=== PATIENT | male | born 1940 | race Caucasian/White ===

== ENCOUNTER 2017-07-06 10:52 | Observation (INO) ==
--- NOTE | 2017-07-06 11:07 | Emergency Department Note ---
Disposition Clinical Impression: Bigeminal rhythm Dyspnea Qualifiers: Dyspnea type: dyspnea on exertion Qualified Code(s): R06.09 - Other forms of dyspnea Disposition: Admitted As Inpatient Condition: Fair Referrals: Getachew Rosales MD [Primary Care Provider] - Time of Disposition: 12:17 SOB HPI - General Stated Complaint: Low heart rate, weakness Time Seen by Provider: 07/06/17 10:54 Source: patient, family Limitations: no limitations Nursing Notes Reviewed: Yes Vital Signs Reviewed: Yes - History of Present Illness Patient complains of resting dyspnea but mostly with exertion over the past several weeks. He can no longer mow his lawn or ambulate to his mailbox without becoming short of breath. He does note occasional throat tightness. He notes feeling generally weak. She was recently started on diltiazem by his primary care provider and referred to follow up with [facility] cardiology. Pt Subjective Complaint: shortness of breath Onset (ago): week(s) Severity: severe Consistency/Duration: intermittent, gradually worsening Improves with: rest Worsens with: exertion Treatment prior to arrival: other (Primary care provider prescribed diltiazem) Cough present: No - Related Data Home oxygen amount: none Allergies Allergy/AdvReac Type Severity Reaction Status Date / Time Sulfa (Sulfonamide AdvReac Rash Verified 07/06/17 11:21 Antibiotics) All systems ED: reviewed and negative except as stated. Constitutional: Reports: weakness Eyes: Reports: as per HPI ENT ED: Reports: as per HPI Cardiovascular: Reports: chest pain (Occasional chest discomfort), dyspnea on exertion Respiratory: Reports: dyspnea Gastrointestinal: Reports: as per HPI Genitourinary: Reports: as per HPI Musculoskeletal: Reports: as per HPI Integumentary: Reports: as per HPI Neurological: Reports: weakness Psychiatric: Reports: as per HPI Endocrine: Reports: fatigue Hematological/Lymphatic: Reports: as per HPI Allergic/Immunologic: Reports: as per HPI Past Medical History - Past Medical History Source: patient Medical history: Reports: arthritis, GERD, hyperlipidemia, thyroid disease Surgical history: Reports: cholecystectomy, herniorrhaphy, orthopedic, other Psychiatric history: Reports: no psych history - Social History Smoking Status: Never smoker Alcohol use: Reports: none Drug use: Reports: none Physical Exam - General Limitations: no limitations General appearance: alert - Head Head exam: atraumatic - Eye Eye exam: Present: normal appearance - ENT ENT exam: normal exam - Neck Neck exam: Present: normal inspection, full ROM - Chest Chest inspection: Present: normal inspection, symmetric chest wall rise - Respiratory Respiratory exam: Present: normal lung sounds bilaterally. Absent: respiratory distress - Cardiovascular Cardiovascular exam: Present: regular rate, normal rhythm, normal heart sounds - Abdominal Exam Abdominal exam: Present: soft, Non-Tender - Rectal Exam Rectal exam: Present: deferred - Extremities Exam Extremities exam: Present: normal inspection - Neurological Exam Neurological exam: Present: alert, oriented X3, CN II-XII intact - Psychiatric Psychiatric exam: Present: normal affect, normal mood - Skin Skin exam: Present: warm, dry, intact Course Course Narrative: Patient presents with generalized fatigue and exertional dyspnea. EKG pattern reveals bigeminy. He was initially started on diltiazem by his primary care provider. Workup initiated - Reevaluation(s) Reevaluation #1: Test results discussed with patient and family. Call placed to cardiology. I will request admission - Consultations Consultation #1: Call placed to cardiology on-call. Consult discussed with Dr. Telles Vital Signs Temperature 97.2 F L 07/06/17 11:08 Pulse Rate 69 07/06/17 11:08 Respiratory Rate 20 07/06/17 11:08 Blood Pressure 120/64 07/06/17 11:08 O2 Sat by Pulse Oximetry 98 07/06/17 11:08 Temperature 97.2 F L 07/06/17 11:08 Pulse Rate 69 07/06/17 11:08 Respiratory Rate 20 07/06/17 11:08 Blood Pressure 120/64 07/06/17 11:08 O2 Sat by Pulse Oximetry 99 07/06/17 11:08 Oxygen Delivery Oxygen Delivery Room Air Shortness of Breath/Dyspnea - Lab Data Lab results reviewed: Yes I reviewed the patient's lab results. Result diagrams: 07/06/17 11:25 07/06/17 11:25 Lab Results 07/06/17 07/06/17 07/06/17 Range/Units 11:25 11:25 11:25 WBC 7.5 (4.3-11.1) K/mcL RBC 5.09 (4.19-5.50) M/mcL Hgb 15.0 (12.9-16.9) g/dL Hct 45.4 (37.5-50.1) % MCV 89.2 (83.0-100.0) fL MCH 29.5 (28.0-33.3) pg MCHC 33.0 (31.6-35.5) g/dL RDW 12.5 (11.5-14.5) % Plt Count 185 (140-400) K/mcL MPV 11.1 (9.4-12.4) fL Immature Gran % 0.7 (0-4) % Seg Neutrophils % 45.7 % Lymphocytes % 39.2 % Monocytes % 10.2 % Eosinophils % 3.1 % Basophils % 1.1 % Neutrophils # 3.4 (1.6-8.9) K/mcL Lymphocytes # 2.9 (0.6-4.6) K/mcL Monocytes # 0.8 (0.0-1.3) K/mcL Eosinophils # 0.2 (0.0-0.6) K/mcL Basophils # 0.1 (0.0-0.2) K/mcL PT 12.9 H (9.4-12.1) Seconds INR 1.2 D-Dimer 317 (0-500) ng/mLFEU Sodium 139 (136-145) mEq/L Potassium 4.4 (3.5-4.5) mEq/L Chloride 107 (98-109) mEq/L Carbon Dioxide 26 (19-29) mEq/L BUN 16 (8-26) mg/dL Creatinine 1.10 (0.72-1.25) mg/dL Est GFR ( Amer) > 60 (> 60) Est GFR (Non-Af Amer) > 60 (> 60) BUN/Creatinine Ratio 15 (6-26) Glucose 99 (70-99) mg/dL Calculated Osmolality 289 (280-300) Calcium 9.1 (8.6-10.8) mg/dL Total Bilirubin 1.2 (0.2-1.2) mg/dL AST 17 (5-34) Units/L ALT 20 (0-55) Units/L Alkaline Phosphatase 69 (38-126) Units/L Troponin I (0-0.03) ng/mL B-Natriuretic Peptide (0-100) pg/mL Serum Total Protein 7.0 (6.0-8.3) g/dL Albumin 3.7 (3.5-5.0) g/dL Globulin 3.3 (2.4-3.5) g/dL Albumin/Globulin Ratio 1.1 (1.1-2.2) TSH (0.350-4.840) mcIU/mL 07/06/17 07/06/17 07/06/17 Range/Units 11:25 11:25 11:25 WBC (4.3-11.1) K/mcL RBC (4.19-5.50) M/mcL Hgb (12.9-16.9) g/dL Hct (37.5-50.1) % MCV (83.0-100.0) fL MCH (28.0-33.3) pg MCHC (31.6-35.5) g/dL RDW (11.5-14.5) % Plt Count (140-400) K/mcL MPV (9.4-12.4) fL Immature Gran % (0-4) % Seg Neutrophils % % Lymphocytes % % Monocytes % % Eosinophils % % Basophils % % Neutrophils # (1.6-8.9) K/mcL Lymphocytes # (0.6-4.6) K/mcL Monocytes # (0.0-1.3) K/mcL Eosinophils # (0.0-0.6) K/mcL Basophils # (0.0-0.2) K/mcL PT (9.4-12.1) Seconds INR D-Dimer (0-500) ng/mLFEU Sodium (136-145) mEq/L Potassium (3.5-4.5) mEq/L Chloride (98-109) mEq/L Carbon Dioxide (19-29) mEq/L BUN (8-26) mg/dL Creatinine (0.72-1.25) mg/dL Est GFR ( Amer) (> 60) Est GFR (Non-Af Amer) (> 60) BUN/Creatinine Ratio (6-26) Glucose (70-99) mg/dL Calculated Osmolality (280-300) Calcium (8.6-10.8) mg/dL Total Bilirubin (0.2-1.2) mg/dL AST (5-34) Units/L ALT (0-55) Units/L Alkaline Phosphatase (38-126) Units/L Troponin I 0.01 (0-0.03) ng/mL B-Natriuretic Peptide 132 H (0-100) pg/mL Serum Total Protein (6.0-8.3) g/dL Albumin (3.5-5.0) g/dL Globulin (2.4-3.5) g/dL Albumin/Globulin Ratio (1.1-2.2) TSH 4.406 (0.350-4.840) mcIU/mL - Radiology Data Radiology results reviewed: Yes I reviewed the patient's radiology results. - EKG Data EKG attestation: Yes I reviewed and interpreted this EKG. EKG results narrative: Sinus bradycardia with bigeminy pattern. Rate 69 168 QRS 109 QT/QTc 407/426
[2017-07-06 11:39] LABS: Basophils # 0.1 K/mcL (0.0-0.2); Basophils % 1.1 %; Eosinophils # 0.2 K/mcL (0.0-0.6); Eosinophils % 3.1 %; Hematocrit 45.4 % (37.5-50.1); Immature Granulocytes % 0.7 % (0-4); Lymphocytes # 2.9 K/mcL (0.6-4.6); Lymphocytes % 39.2 %; Mean Corpuscular Hemoglobin 29.5 pg (28.0-33.3); Mean Corpuscular Volume 89.2 fL (83.0-100.0); Mean Platelet Volume 11.1 fL (9.4-12.4); Monocytes # 0.8 K/mcL (0.0-1.3); Monocytes % 10.2 %; Neutrophils # 3.4 K/mcL (1.6-8.9); Platelet Count 185 K/mcL (140-400); Red Blood Count 5.09 M/mcL (4.19-5.50); Red Cell Distribution Width 12.5 % (11.5-14.5); Segmented Neutrophils % 45.7 %
[2017-07-06 11:49] LABS: Alanine Aminotransferase 20 Units/L (0-55); Albumin 3.7 g/dL (3.5-5.0); Albumin/Globulin Ratio 1.1 (1.1-2.2); Alkaline Phosphatase 69 Units/L (38-126); Aspartate Amino Transferase 17 Units/L (5-34); BUN/Creatinine Ratio 15 (6-26); Bilirubin,Total 1.2 mg/dL (0.2-1.2); Blood Urea Nitrogen 16 mg/dL (8-26); Calcium 9.1 mg/dL (8.6-10.8); Carbon Dioxide 26 mEq/L (19-29); Chloride 107 mEq/L (98-109); Globulin 3.3 g/dL (2.4-3.5); Glucose 99 mg/dL (70-99); Osmolality,Calculated 289 (280-300); Potassium 4.4 mEq/L (3.5-4.5); Sodium 139 mEq/L (136-145); eGFR For African Americans > 60 (> 60); eGFR For Non-African Americans > 60 (> 60)
[2017-07-06 11:51] LABS: INR 1.2; Prothrombin Time 12.9 Seconds (9.4-12.1)
[2017-07-06] MEDS ORDERED: Ondansetron 4 MG/2 ML VIAL IVP PRN (13:13)
[2017-07-06] MEDS ORDERED: Naloxone 0.4 MG/ML INJ IVP PRN (13:13)
[2017-07-06] MEDS ORDERED: Acetaminophen 325 MG TABLET PO PRN (13:13)
[2017-07-06] MEDS ORDERED: *HR* Morphine 2 MG/ML SYRINGE IVP PRN (13:13)
[2017-07-06] MEDS ORDERED: *HR* HYDROcodone/Acet 5/325 mg TABLET PO PRN (13:13)
--- NOTE | 2017-07-06 13:30 | Internal Med History&Physical ---
<YasminyoungdiamondJairo sanchez - Last Filed: 07/06/17 19:08> Date of Encounter: 07/06/17 Time of Encounter: 12:15 Assessment and Plan (1) Bigeminal rhythm Current visit: Yes Status: Acute Patient presents with acute bigeminal rhythm on EKG today. 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 He states he feels more SOB and weaker since beginning the Cardizem. Cardiology consult ordered in the ED. patient placed on continuous cardiac telemetry with orders for echocardiogram. Repeat EKG ordered. We will hold patient's diltiazem for now. Consider nuclear pharm stress test based on echocardiogram results and cardiology recommendations. (2) Dyspnea Current visit: Yes Status: Acute Patient presents with acute dyspnea that he reports has become worse over the past several months. Patient reports he could go on long walks previous without SOB or lightheadedness. He denies current use of home O2. Supplemental O2 ordered titration if SPO2 less than 92%, as well as continuous SPO2 monitoring. Falls/safety precautions ordered. Qualifiers: Dyspnea type: dyspnea on exertion Qualified Code(s): R06.09 - Other forms of dyspnea (3) Weakness Current visit: Yes Status: Acute Patient presents with acute weakness most like related to current bradycardia and bigeminal HR pattern. Falls/safety precautions ordered. PT/OT consults ordered to assess patient for assistance with strengthening and ADLs. (4) Lightheadedness Current visit: Yes Status: Acute Patient presents with acute lightheadedness which he states has become progressively worse. Patient reports becoming lightheaded with positional changes and at rest. Orthostatic BPs and vital signs ordered and patient placed on continuous cardiac telemetry. Patient will be falls precautions/up with assist/bedrest with bathroom privileges with assist only due to lightheadedness and weakness. (5) Chest pressure Current visit: Yes Status: Acute Patient presents with acute chest pressure he states has been going on for several months and extends across his chest and epigastric area but does not radiate. Chest pain could be due to patient's current GERD or possible cardiac issue. Patient denies previous history of cardiac events or disease personally. Patient was recently seen [facility] cardiology and started on diltiazem for irregular heart rhythm. Cardiology consult ordered in the ED. Patient placed on continuous cardiac telemetry with supplemental O2. Echocardiogram ordered. Will consider nuclear pharm stress testing based on echocardiogram results and recommendations from cardiology. (6) GERD (gastroesophageal reflux disease) Current visit: Yes Status: Chronic Patient presents with history of chronic gastroesophageal reflux disease which may be due to patient's current chest pressure and epigastric discomfort. IVP Protonix 40 mg daily ordered with first dose NOW. Qualifiers: Esophagitis presence: esophagitis presence not specified Qualified Code(s) : K21.9 - Gastro-esophageal reflux disease without esophagitis (7) HLD (hyperlipidemia) Current visit: Yes Status: Chronic Patient presents with history of chronic hyperlipidemia. Lipid panel ordered. Will continue patient's Lipitor. Qualifiers: Hyperlipidemia type: pure hypercholesterolemia Qualified Code(s): E78.00 - Pure hypercholesterolemia, unspecified; E78.0 - Pure hypercholesterolemia (8) Thyroid disease Current visit: Yes Status: Chronic Patient presents with history of chronic thyroid disease. Patient's TSH on initial labs is 4.406. Will continue patient's levothyroxine. (9) DVT prophylaxis Current visit: Yes Status: Acute Patient to be placed on DVT prophylaxis due to current admission protocol and bedrest status. Heparin 5000 units SQ every 8 ordered Internal Medicine - H&P: HPI Chief complaint: Slow heart rate/SOB/Lightheadedness Admitted From: Emergency Dept Plans for Post Hospital Care: Home History of present illness: Mr. Lay is a 76 year old male who presents from the ED with chief complaint of shortness of breath, weakness, lightheadedness, and chest pressure for the past several months. Patient states the symptoms become worse over the past week. Patient states recently he was able to walk longer distances and no his lawn without becoming short of breath. Now he reports general weakness which working prevents him from being very active. Patient was seen recently at [facility] cardiology and started on diltiazem for history of irregular heartbeat. Upon presentation today, patient's heartbeat continues to be irregular with frequent ventricular premature complexes in a bigeminal pattern. Patient denies use of home oxygen. Patient's current medical history includes arthritis , GERD, hyperlipidemia, and thyroid disease. Patient denies previous history of any cardiac disease or issues, however he has a long familial history of cardiac disease and risk factors including [place], HTN, HLD, abdominal aortic aneurysms, and CHF. Mr. Lay is at moderate risk for cardiac event based on his current symptoms, risk factors of prior tobacco abuse and HLD, as well as familial history and risk factors and he will be placed as observation status. Cardiology consult ordered in the ED. Patient to be placed on continuous cardiac telemetry, supplemental O2, and falls/safety precautions. Will hold patient's Cardizem for now. Patient to be monitored closely for signs of increasing cardiac/respiratory distress. Time spent with patient >40 minutes. Past Med Surg Social Fam HX - Past Medical History Source: patient Medical history: arthritis, GERD, hyperlipidemia, thyroid disease Psychiatric history: no psych history - Past Surgical History Surgical History: cholecystectomy, herniorrhaphy, orthopedic, other (Back surgery with metal plate), other (Tonsillectomy) - Social History Smoking Status: Never smoker Smokeless Tobacco Status: No Alcohol use: none Drug use: none Occupational status: previously employed Current living situation: Home, With Family Activity Level: Independent ambulation Recent Out of Country Travel Within the Last 8 Weeks: No Exposure or Possible Exposure to Illness During Travel: No - Family History Father Race: Family Member Ethnicity: Non- Living Status: Age at : 100 Cause of : HD Hx Family Cardiac Disorders: Yes (HD, Pacemaker, Abdominal aortic aneurysm) Hx Family Neurologic Disorders: Yes (Dementia) Mother Race: Family Member Ethnicity: Non- Living Status: Age at : 89 Cause of : [place] Hx Family Cardiac Disorders: Yes (KS, CHF, HTN) Hx Family Musculoskeletal Disorders: Yes (Arthritis) Brother Race: Family Member Ethnicity: Non- Living Status: Age at : 74 Cause of : [place] Hx Family Cardiac Disorders: Yes (KS, HTN, HLD, Abdominal aortic aneurysm) Sister Race: Family Member Ethnicity: Non- Living Status: Age at : 82 Cause of : Cancer Hx Family Cardiac Disorders: Yes (KS, DVT, HTN) Hx Family Cancer: Yes (Bladder) Hx Family Neurologic Disorders: Yes (Dementia) Internal Medicine - H&P: Meds Atorvastatin [Lipitor] 10 mg PO HS 07/06/17 [History] Diltiazem HCl [Diltiazem 12Hr ER] 120 mg PO DAILY 07/06/17 [History] Escitalopram [Lexapro] 10 mg PO DAILY 07/06/17 [History] Levothyroxine Sodium [Levoxyl] 100 mcg PO DAILY 07/06/17 [History] Allergies Sulfa (Sulfonamide Antibiotics) Adverse Reaction (Verified 07/06/17 11:21) Rash All Systems PM: A 10-system review of systems was performed and is negative for pertinent findings except as documented above in the HPI. - Constitutional Constitutional: as per HPI, weakness, no chills, no fever(s), no night sweats - EENT Eyes: no change in vision, no discharge, no pain, no photophobia Ears: no ear discharge, no ear pain, no tinnitus Nose, mouth and throat: no dysphagia, no nasal discharge, no neck pain, no sore throat - Breasts Breasts: as per HPI - Cardiovascular Cardiovascular ROS IM: as per HPI, chest pain, dyspnea, dyspnea on exertion, irregular heart rhythm, lightheadedness, no diaphoresis, no palpitations, no syncope - Respiratory Respiratory: as per HPI, dyspnea, dyspnea on exertion - Gastrointestinal Gastrointestinal: no abdominal pain, no diarrhea, no hematemesis, no hematochezia, no melena, no nausea, no vomiting - Genitourinary Genitourinary ROS male: as per HPI, difficulty urinating, post void dribbling, urinary hesitancy - Musculoskeletal Musculoskeletal ROS IM: no numbness, no tingling - Integumentary Integumentary IM: no rash, no unusual bruising - Neurological Neurological ROS: no confusion, no convulsions, no focal weakness, no numbness, no tingling, no tremor(s) - Psychiatric Psychiatric: as per HPI - Endocrine Endocrine IM: as per HPI - Hematologic/Lymphatic Hematologic/Lymphatic: no easy bruising - Allergic/Immunologic Allergic/Immunologic: as per HPI - Constitutional Vitals: Temp Pulse Resp BP Pulse Ox 97.2 F L 72 20 124/67 96 07/06/17 11:08 07/06/17 12:50 07/06/17 12:50 07/06/17 12:50 07/06/17 12:50 General appearance: Present: cooperative, A&O X 3, morbidly obese, pleasant, no acute distress, answers questions appropriately - Head Head exam: Present: atraumatic, normocephalic - Eye Eye exam: Present: PERRL, conjuntiva pink, sclera anicteric Pupils: Present: PERRL - ENT ENT exam: Present: normal exam, normal external ear exam - Neck Neck exam general surgery: Present: normal inspection, supple, trachea midline. Absent: lymphadenopathy - Respiratory Respiratory exam: Present: CTAB. Absent: accessory muscle use, rales, rhonchi, wheezes - Cardiovascular Cardiovascular exam: Present: bradycardia, irregular rhythm - GI/Abdominal GI/Abdominal exam: Present: normal bowel sounds, soft, no peritoneal signs. Absent: distended, tenderness - Rectal Rectal exam: Present: deferred - Additional comments: exam deferred. - Extremities Exam Extremities exam: Present: warm, radial pulses palpable and symmetrical. Absent : calf tenderness, cyanotic, pedal edema - Back Exam Back exam: Present: normal inspection - Neurological Exam Neurological exam: Present: CN II-XII intact, oriented X3, no focal deficits. Absent: pronater drift, facial droop, speech deficit - Psychiatric Psychiatric exam: Present: normal affect, normal mood - Skin Skin exam: Present: dry, intact Internal Med - H&P Results - Labs CBC & Chem 7: 07/06/17 11:25 07/06/17 11:25 - EKG Data EKG shows normal: sinus rhythm Rate: bradycardia - EKG Data Prior EKG available for review: yes When compared to previous EKG: there are significant changes EKG comments: 07/06/17 13:53 EKG dated 04/24/15 shows sinus rhythm. EKG dated 07/06/17 shows sinus rhythm with frequent ventricular premature complexes in a bigeminal pattern. <Zac Weller - Last Filed: 07/06/17 19:30> Date of Encounter: 07/06/17 Internal Medicine - H&P: HPI History of present illness: Mr. Lay is a 76 year old male All Systems PM: A 10-system review of systems was performed and is negative for pertinent findings except as documented above in the HPI. - Constitutional Vitals: Temp Pulse Resp BP Pulse Ox 97.6 F 74 14 139/78 96 07/06/17 15:33 07/06/17 15:33 07/06/17 15:33 07/06/17 15:33 07/06/17 15:33 Internal Med - H&P Results - Labs CBC & Chem 7: 07/06/17 11:25 07/06/17 11:25 - Attending Attestation I have personally performed a face to face evaluation on this patient. I have reviewed and agree with the care plan. History and Exam by me shows: Mr Lay is admitted for bradycardia and dyspnea. Exam Alert. Comfortable Heart irreg- trigeminy on monitor Lungs clear No edema Agree with plan as outlined above
[2017-07-06] MEDS: Pantoprazole 40 MG VIAL IVP SCH (15:14)
[2017-07-06] MEDS: *HR* Heparin 5,000 UNIT/ML VIAL SQ SCH ×2 (15:15→21:24)
--- NOTE | 2017-07-06 18:22 | Cardiology Consult Note ---
<Louise Gan - Last Filed: 07/06/17 18:18> Date of Encounter: 07/06/17 Time of Encounter: 17:00 Assessment and Plan (1) Premature ventricular contractions Current Visit: Yes Status: Acute Per cardiology: -Frequent PVCs noted per telemetry. -Episodes of bigeminy noted. -ECG with bigeminal PVCs. -Denies chest pain. -Admits to increased shortness of breath and increased weakness. -Echo pending. -K, TSH within normal limits. On synthroid. -Will check magnesium level. -Will obtain non-excercise nuclear stress test in am. -Further recommendations pending stress and echo. Discussion w patient/family: The assessment and plan as outlined above was discussed with the patient and/or family members who expressed understanding and agreement. All questions were answered. Thank you for involving us in the care of your patient. Please call with any questions. Discussed and reviewed with . History of Present Illness Consult date: 07/06/17 Requesting physician: Devendra Juarez Consult reason: Bigeminey Chief complaint: Shortness of breath, weakness History of present illness: Mr. Lay is a 76 year old male with a relevant past medical history of hyperlipidemia, hypothyroidism, anxiety, GERD. Pateint presented to [facility] with complaints of worsening shortness of breath and weakness. Patient states this has been occurring for the past couple of months. Patient states he was seen by PCP and noted to have PVCs. Patient was referred to [facility] cardiology, however has not been seen yet. Pateint was started on cardizem by PCP. Pateint states symptoms were worse with cardizem. Patient states he came to [facility] due to progressively worse shortness of breath. Pateint stated he felt like he was "going to take my last breath." Past Med Surg Social Fam HX - Past Medical History Attestation: Yes The following information was validated with the patient. Source: patient, old records reviewed, obtained from family Medical history: arthritis, GERD, hyperlipidemia, thyroid disease Psychiatric history: anxiety - Past Surgical History Surgical History: cholecystectomy, herniorrhaphy, orthopedic, other, other - Social History Smoking Status: Former smoker Smokeless Tobacco Status: No Alcohol use: none Drug use: none - Family History Father Race: Family Member Ethnicity: Non- Living Status: Age at : 100 Cause of : HD Hx Family Cardiac Disorders: Yes (HD, Pacemaker, Abdominal aortic aneurysm) Hx Family Neurologic Disorders: Yes (Dementia) Mother Race: Family Member Ethnicity: Non- Living Status: Age at : 89 Cause of : [place] Hx Family Cardiac Disorders: Yes ([place], CHF, HTN) Hx Family Musculoskeletal Disorders: Yes (Arthritis) Brother Race: Family Member Ethnicity: Non- Living Status: Age at : 74 Cause of : [place] Hx Family Cardiac Disorders: Yes ([place], HTN, HLD, Abdominal aortic aneurysm) Sister Race: Family Member Ethnicity: Non- Living Status: Age at : 82 Cause of : Cancer Hx Family Cardiac Disorders: Yes ([place], DVT, HTN) Hx Family Cancer: Yes (Bladder) Hx Family Neurologic Disorders: Yes (Dementia) Medications and Allergies Atorvastatin [Lipitor] 10 mg PO HS 07/06/17 [History] Diltiazem HCl [Diltiazem 12Hr ER] 120 mg PO DAILY 07/06/17 [History] Escitalopram [Lexapro] 10 mg PO DAILY 07/06/17 [History] Levothyroxine Sodium [Levoxyl] 100 mcg PO DAILY 07/06/17 [History] Allergies Sulfa (Sulfonamide Antibiotics) Adverse Reaction (Verified 07/06/17 11:21) Rash All Systems Review: A 10-system review of systems was performed and is negative for pertinent findings except as documented above in the HPI. - Constitutional Constitutional: weakness - Cardiovascular Cardiovascular: as per HPI, dyspnea on exertion Physical Examination Vital Signs, Last 4 Hours Temp Pulse Resp BP Pulse Ox 07/06/17 15:33 97.6 F 74 14 139/78 96 07/06/17 14:20 95 General: Conversant, No Apparent Distress HEENT: Atraumatic, Normocephaly, Mucus Membranes Moist Neck: No JVD, Normal carotid pulses Cardiac: Normal S1 and S2, No Murmur, Other (PVCs noted. ) Lungs: Normal Breath Sounds, No Wheeze, Rales, Rhonchi Neuro: Alert and responsive, No focal deficits noted Abdomen: Soft, Non-Tender Skin: No rashes noted on visualized skin Musculoskeletal: No Chest Wall Tenderness Extremities: No Clubbing, No Cyanosis, No Edema, Normal Pulses Results 07/06/17 11:25 07/06/17 11:25 Impressions Chest X-Ray 07/06/17 11:02 IMPRESSION: No acute process. D/ / Margarito Givens / Margarito Givens Interpreting Provider: Margarito Givens Active Medications Acetaminophen (Tylenol) 650 mg PO Q6HR PRN PRN Reason: Mild Pain (1-3) Stop: 01/05/18 13:14 Hydrocodone Bitart/Acetaminophen ([place] 5-325 Mg) 1 tab PO Q4HR PRN PRN Reason: Moderate Pain (4-6) Stop: 01/05/18 13:14 Atorvastatin Calcium (Lipitor) 10 mg PO HS [facility] Stop: 01/05/18 21:01 Escitalopram Oxalate (Lexapro) 10 mg PO DAILY [facility] Stop: 01/06/18 09:01 Heparin Sodium (Porcine) (Heparin) 5,000 unit SQ Q8HCO [facility] Stop: 01/05/18 14:01 Last Admin: 07/06/17 15:15 Dose: 5,000 unit Levothyroxine Sodium (Synthroid) 100 mcg PO 0630 [facility] Stop: 01/06/18 06:31 Morphine Sulfate (Morphine Sulfate) 2 mg IVP Q4HR PRN PRN Reason: Severe Pain (7-10) Stop: 01/05/18 13:14 Naloxone HCl (Narcan) 0.4 mg IVP Q2MIN PRN PRN Reason: Opioid Reversal Stop: 01/05/18 13:14 Ondansetron HCl (Zofran) 4 mg IVP Q8HR PRN PRN Reason: Nausea And Vomiting Stop: 01/05/18 13:14 Pantoprazole Sodium (Protonix) 40 mg IVP DAILY [facility] Stop: 01/05/18 13:16 Last Admin: 07/06/17 15:14 Dose: 40 mg Laboratory Tests 07/06/17 07/06/17 07/06/17 11:25 11:25 11:25 Hgb 15.0 Potassium 4.4 Creatinine 1.10 Troponin I 0.01 TSH 07/06/17 11:25 Hgb Potassium Creatinine Troponin I TSH 4.406 - Imaging and Cardiology Chest Xray: report reviewed Stress Test: pending Echo: pending - EKG Interpretation EKG results cardiology: personally reviewed (ECG with Bigeminal PVCS.), other ( Telemetry reviewed with SR, frequent PVCs and couplets. Episodes noted of bigeminy.) Consult Discharge Plan - Plan Referrals: Getachew Rosales MD [Primary Care Provider] - <Jose Telles - Last Filed: 07/06/17 20:03> Date of Encounter: 07/06/17 Assessment and Plan Discussion w patient/family: The assessment and plan as outlined above was discussed with the patient and/or family members who expressed understanding and agreement. All questions were answered. Thank you for involving us in the care of your patient. Please call with any questions. History of Present Illness History of present illness: Mr. Lay is a 76 year old male All Systems Review: A 10-system review of systems was performed and is negative for pertinent findings except as documented above in the HPI. Results 07/06/17 11:25 07/06/17 11:25 - Attending Attestation Pt independently evaluated and examined, old charts reviewed, agree with above findings, CC Shorntness of breath with exertion, fatique Pt reports six week history of increased fatigue, loss of energy and shortness of breath with exertion. Pt reports exercise tolerance has decreased to the point he cannot walk ten feet without having to stop for breath. He denies associated chest pain, pressure or shortness of breath. He reports sought care of family physician two weeks ago, found to be in bigeminy, placed on diltiazem , without significant improvement. He feels symptoms have worsened while on this medication. He underwent stress testing [facility] fifteen years ago for unclear indications, which was reportedly normal. He also notes has had an irregular heart beat, noted on physical exam and on EKG in primary care office, but denies symptoms of papitations. He notes over last 24 hours feels like he cannot take a deep breath at rest, and has to sit up and breath thru his mouth due to air hunger. He reports symptoms have improved at rest since hospitalization, but not with activity. IMP/Plan 1. CASAS - unclear etiology, very concerning for anginal equivalent, will order lexiscan cardiolytes stress imaging for AM, echocardiogram to eval LV function , PA pressures. 2. Arrhythmia; PVCs and bigeminy on monitor, also concerning for ischemic substrate, await results of stress imaging in AM 3. Fatigue, unclear etiology, possible anginal equivalent, await results of stress imaging, 4. Hypothyroid, on replacement, reports lab values at goal with recent evaluation by primary care 5. Hyperlipidemia: on statin tx, reports is at goal on most recent lab values.
[2017-07-06 18:53] LABS: Magnesium 2.1 mg/dL (1.6-2.6)
[2017-07-07 05:00] LABS: Basophils # 0.1 K/mcL (0.0-0.2); Basophils % 0.7 %; Eosinophils # 0.2 K/mcL (0.0-0.6); Eosinophils % 2.5 %; Hematocrit 45.2 % (37.5-50.1); Immature Granulocytes % 0.7 % (0-4); Lymphocytes # 3.8 K/mcL (0.6-4.6); Mean Corpuscular HGB Conc 33.2 g/dL (31.6-35.5); Mean Corpuscular Volume 90.4 fL (83.0-100.0); Mean Platelet Volume 11.2 fL (9.4-12.4); Monocytes # 0.8 K/mcL (0.0-1.3); Monocytes % 9.3 %; Neutrophils # 3.9 K/mcL (1.6-8.9); Platelet Count 181 K/mcL (140-400); Red Cell Distribution Width 12.5 % (11.5-14.5); Segmented Neutrophils % 43.8 %
[2017-07-07 05:18] LABS: Hemoglobin A1C 5.8 %
[2017-07-07 05:21] LABS: BUN/Creatinine Ratio 15 (6-26); Blood Urea Nitrogen 18 mg/dL (8-26); Carbon Dioxide 27 mEq/L (19-29); Chloride 106 mEq/L (98-109); Chol/HDL Ratio 5.4 (0-4.9); Cholesterol 185 mg/dL (< 200); Glucose 101 mg/dL (70-99); HDL Cholesterol 34 mg/dL (40-59); LDL Cholesterol,Calculated 118 mg/dL (0-99); Magnesium 2.3 mg/dL (1.6-2.6); Osmolality,Calculated 290 (280-300); Potassium 4.4 mEq/L (3.5-4.5); Sodium 139 mEq/L (136-145); Triglycerides 167 mg/dL (< 150); eGFR For African Americans > 60 (> 60); eGFR For Non-African Americans > 60 (> 60)
[2017-07-07] MEDS: *HR* Heparin 5,000 UNIT/ML VIAL SQ SCH ×3 (06:05→21:50)
[2017-07-07] MEDS ORDERED: Regadenoson 0.4 MG/5 ML SYRINGE IVP ONE (06:06)
--- NOTE | 2017-07-07 08:13 | Discharge Summary ---
Date of Encounter: 07/08/17 Time of Encounter: 08:10 - Discharge Diagnosis (1) Dyspnea Priority: Primary Status: Acute Qualifiers: Dyspnea type: dyspnea on exertion Qualified Code(s): R06.09 - Other forms of dyspnea (2) Lightheadedness Priority: Secondary Status: Acute (3) Chest pressure Priority: Primary Status: Acute (4) HLD (hyperlipidemia) Priority: Secondary Status: Chronic Qualifiers: Hyperlipidemia type: mixed hyperlipidemia Qualified Code(s): E78.2 - Mixed hyperlipidemia (5) GERD (gastroesophageal reflux disease) Priority: Secondary Status: Chronic Qualifiers: Esophagitis presence: esophagitis presence not specified Qualified Code(s) : K21.9 - Gastro-esophageal reflux disease without esophagitis (6) Thyroid disease Priority: Secondary Status: Chronic - Discharge Medications Home Medications: Atorvastatin [Lipitor] 10 mg PO HS 07/06/17 [History] Diltiazem HCl [Diltiazem 12Hr ER] 120 mg PO DAILY 07/06/17 [History] Escitalopram [Lexapro] 10 mg PO DAILY 07/06/17 [History] Levothyroxine Sodium [Levoxyl] 100 mcg PO DAILY 07/06/17 [History] Allergies/Adverse Reactions: Sulfa (Sulfonamide Antibiotics) Adverse Reaction (Verified 07/06/17 11:21) Rash Procedures/tests Complete & Pending: Procedures Performed prior 72 hours Category Date Time Status NM zachariah perf SPECT multi [NM] Routine Exams 07/06/17 18:18 Ordered EV echocardiogram Stat Y 07/06/17 13:17 Completed SP pharm nuclear stress Routine Y 07/08/17 07:45 Ordered Date of admission: 07/06/17 12:56 Primary care physician: Getachew Rosales MD Consults: 07/06/17 13:15 Consult to Occupational Therapy [CONS] Routine Comment: Evaluate, develop and implement POC Reason for Consult: Patient is having problems with ADLs due to SOB, weakness , and lightheadedness. Assess for safety measures and strengthening. 07/06/17 13:16 Consult to Physical Therapy [CONS] Routine Comment: Evaluate, develop and implement POC Reason for Consult: Patient is having problems with ADLs due to SOB, weakness , and lightheadedness. Assess for safety measures and strengthening. 07/06/17 15:15 Consult to License Issuer [CONS] Routine Reason for SW Consult: POA paperwork Discharging clinician: Nicole Bar Anticipated date of discharge: 07/07/17 - Patient Status Disposition: Home, Self-Care Condition: Fair Overall status at discharge: patient is progressing back to baseline - Discharge Instructions Follow Up With: Getachew Rosales MD [Primary Care Provider] - Forms: ED Satisfaction Letter - Diet and Activity Activity: resume usual activities as tolerated Diet: advance to your usual diet, low fat, low cholesterol, low salt diet Hospital course: Mr. Lay is a 76 year old male admitted for chest pain and shortness of breath has been going on for last few weeks. Cardiology was consulted. Chest x-ray and echocardiogram nuclear stress test has been ordered. TSH and electrolytes and within normal range. If above-mentioned test and negative patient can be discharged home and be treated as outpatient. His oxygen saturation is satisfactory on room air. As noted above a chest x-ray is requested as I did not notice any in the EMR.Significant time spend in answering questions from patient and family. Counselling provided for patient's weight gain and probable contribution towards symptoms. - Time Spent with Patient Total time spent providing and/or coordinating discharge services: Greater than 30 minutes - Constitutional Vitals: Temp Pulse Resp BP Pulse Ox 97.6 F 98 16 127/77 96 07/07/17 07:31 07/07/17 07:31 07/07/17 07:31 07/07/17 07:31 07/07/17 07:31 General appearance: Present: cooperative, A&O X 3, morbidly obese, pleasant, no acute distress, answers questions appropriately - Head Head exam: Present: atraumatic, normocephalic - Eye Eye exam: Present: PERRL, conjuntiva pink, sclera anicteric Pupils: Present: PERRL - Neck Neck exam general surgery: Present: supple, trachea midline. Absent: lymphadenopathy - Respiratory Respiratory exam: Present: CTAB. Absent: accessory muscle use, rales, rhonchi, wheezes - Cardiovascular Cardiovascular exam: Present: RRR, +S1, +S2. Absent: diastolic murmur, gallop, rubs, systolic murmur - GI/Abdominal GI/Abdominal exam: Present: normal bowel sounds, soft, no peritoneal signs. Absent: distended, tenderness - Extremities Exam Extremities exam: Present: warm, radial pulses palpable and symmetrical. Absent : calf tenderness, cyanotic, pedal edema - Neurological Exam Neurological exam: Present: CN II-XII intact, oriented X3, no focal deficits. Absent: pronater drift, facial droop, speech deficit - Skin Skin exam: Present: dry, intact
--- NOTE | 2017-07-07 09:53 | Cardiology Progress Note ---
Date of Encounter: 07/07/17 Time of Encounter: 09:00 Assessment and Plan (1) Premature ventricular contractions Current Visit: Yes Status: Acute Per cardiology: -Frequent PVCs noted per telemetry. -Episodes of bigeminy noted. -ECG with bigeminal PVCs. -Denies chest pain. -Admits to increased shortness of breath and increased weakness. -Echo 07/06/17 with LVEF 60%, moderate diastolic function, no significant valvular dysfunction, all short with normal motion. -K, Mg, and TSH, within normal limits. On synthroid. -Stress pending. -Further recommendations pending stress. -Will continue to monitor. (2) HLD (hyperlipidemia) Current Visit: Yes Status: Chronic Per cardiology: -KNown hyperlipidemia. -On atorvastatin 10mg daily. -Triglycerides 167, cholesterol 185. LDL 118, and HDL 34. AST and ALT within normal limits. -Will increase atorvastatin to 40mg daily. Qualifiers: Hyperlipidemia type: mixed hyperlipidemia Qualified Code(s): E78.2 - Mixed hyperlipidemia Discussion w patient/family: The assessment and plan as outlined above was discussed with the patient and/or family members who expressed understanding and agreement. All questions were answered. Thank you for involving us in the care of your patient. Please call with any questions. Discussed and reviewed with . Subjective Principal diagnosis: Frequent PVCs Interval history: Patient states he feels ok this morning. Patient states weakness and shortness of breath are about the same. Objective Vital Signs, Last 4 Hours Temp Pulse Resp BP Pulse Ox 07/07/17 08:31 96 07/07/17 07:31 97.6 F 98 16 127/77 96 General: Conversant, No Apparent Distress HEENT: Atraumatic, Normocephaly, Mucus Membranes Moist Neck: No JVD, Normal carotid pulses Cardiac: Normal S1 and S2, No Murmur, Other (PVCs noted. ) Lungs: Normal Breath Sounds, No Wheeze, Rales, Rhonchi Neuro: Alert and responsive, No focal deficits noted Abdomen: Soft, Non-Tender Skin: No rashes noted on visualized skin Musculoskeletal: No Chest Wall Tenderness Extremities: No Clubbing, No Cyanosis, No Edema, Normal Pulses Results 07/07/17 04:49 07/07/17 04:49 Lab Results Impressions Chest X-Ray 07/06/17 11:02 IMPRESSION: No acute process. D/ / Margarito Givens / Margarito Givens Interpreting Provider: Margarito Givens Current Medications Acetaminophen (Tylenol) 650 mg PO Q6HR PRN PRN Reason: Mild Pain (1-3) Stop: 01/05/18 13:14 Hydrocodone Bitart/Acetaminophen ([place] 5-325 Mg) 1 tab PO Q4HR PRN PRN Reason: Moderate Pain (4-6) Stop: 01/05/18 13:14 Atorvastatin Calcium (Lipitor) 10 mg PO HS [facility] Stop: 01/05/18 21:01 Last Admin: 07/06/17 21:24 Dose: 10 mg Escitalopram Oxalate (Lexapro) 10 mg PO DAILY [facility] Stop: 01/06/18 09:01 Heparin Sodium (Porcine) (Heparin) 5,000 unit SQ Q8HCO [facility] Stop: 01/05/18 14:01 Last Admin: 07/07/17 06:05 Dose: 5,000 unit Levothyroxine Sodium (Synthroid) 100 mcg PO 0630 [facility] Stop: 01/06/18 06:31 Last Admin: 07/07/17 06:06 Dose: 100 mcg Morphine Sulfate (Morphine Sulfate) 2 mg IVP Q4HR PRN PRN Reason: Severe Pain (7-10) Stop: 01/05/18 13:14 Naloxone HCl (Narcan) 0.4 mg IVP Q2MIN PRN PRN Reason: Opioid Reversal Stop: 01/05/18 13:14 Ondansetron HCl (Zofran) 4 mg IVP Q8HR PRN PRN Reason: Nausea And Vomiting Stop: 01/05/18 13:14 Pantoprazole Sodium (Protonix) 40 mg IVP DAILY [facility] Stop: 01/05/18 13:16 Last Admin: 07/06/17 15:14 Dose: 40 mg Laboratory Tests 07/06/17 07/06/17 07/07/17 11:25 11:25 04:49 Hgb 15.0 Potassium Creatinine Magnesium AST 17 ALT 20 Triglycerides Cholesterol LDL Cholesterol, Calc HDL Cholesterol TSH 4.406 07/07/17 04:49 Hgb Potassium 4.4 Creatinine 1.18 Magnesium 2.3 AST ALT Triglycerides 167 H Cholesterol 185 LDL Cholesterol, Calc 118 H HDL Cholesterol 34 L TSH - Imaging and Cardiology Chest Xray: report reviewed Stress Test: pending Echo: report reviewed - EKG Interpretation EKG results cardiology: other (Telemetry reviewed with average HR 74, sinus rhythm. Frequent PVCs, couplets, and intermittent bigeminy noted.) Consult Discharge Plan - Plan Referrals: Getachew Rosales MD [Primary Care Provider] -
[2017-07-07] MEDS: Pantoprazole 40 MG VIAL IVP SCH (12:09)
[2017-07-07] MEDS: hydroCHLOROthiazide 25 MG TABLET PO SCH (12:49)
--- NOTE | 2017-07-07 14:35 | Electrocardiograph Report ---
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
[2017-07-08] MEDS: *HR* Heparin 5,000 UNIT/ML VIAL SQ SCH ×2 (06:03→17:33)
[2017-07-08] MEDS: hydroCHLOROthiazide 25 MG TABLET PO SCH (08:34)
--- NOTE | 2017-07-08 11:15 | Internal Med Progress Note ---
<Gavin Bradley - Last Filed: 07/08/17 11:12> Date of Encounter: 07/08/17 Time of Encounter: 09:30 - Assessment and plan (1) Bigeminal rhythm Current Visit: Yes Status: Acute Assessment and plan: Pt was seen by cardiology at [facility] for irregular heart beat. Was started on Diltiazem. Pt reports medicine did not help with his symptoms. EKG here shows Bigeminal rhythm and PVCs. Continue cardac monitoring. K, Mg, and TSH wnl ECHO showed:LVEF 60%, moderate diastolic function, no significant valvular dysfunction, all short with normal motion. Stress test results pending. If negative can be d/c home. Continue to hold Diltiazem Continue HCTZ Cardiology on board. Follow Cardio recs. (2) Premature ventricular contractions Current Visit: Yes Status: Acute Assessment and plan: See bigeminal rythym (3) Dyspnea Current Visit: Yes Status: Acute Assessment and plan: Improving, but not 100% resolved. Pt sating well on RA likely 2/2 bigemeny/PVCs continue albuterol treatments QIDR Qualifiers: Dyspnea type: dyspnea on exertion Qualified Code(s): R06.09 - Other forms of dyspnea (4) Chest pressure Current Visit: Yes Status: Acute Assessment and plan: Resolved. Cardiac work up underway, but may be 2/2 to his chronic gerd for which he was not taking medication for regularly. ECHO showed:LVEF 60%, moderate diastolic function, no significant valvular dysfunction, all short with normal motion. Stress test results pending. If negative can be d/c home. (5) Lightheadedness Current Visit: Yes Status: Acute Assessment and plan: Resolved. Asked nursing to complete the orthostatics that were ordered on admission. (6) Weakness Current Visit: Yes Status: Acute Assessment and plan: resolved. Likely 2/2 to his bradycardia and bigeminal HR Evaluated by PT and cleared for D/C home. (7) HLD (hyperlipidemia) Current Visit: Yes Status: Chronic Assessment and plan: Lipid panel showed Triglycerides 167, cholesterol 185. LDL 118, and HDL 34. Atorvastatin was increased from 10mg daily to 40mg daily continue 40mg daily Qualifiers: Hyperlipidemia type: mixed hyperlipidemia Qualified Code(s): E78.2 - Mixed hyperlipidemia (8) Thyroid disease Current Visit: Yes Status: Chronic Assessment and plan: Stable. TSH 4.406 Continue Synthroid (9) GERD (gastroesophageal reflux disease) Current Visit: Yes Status: Chronic Assessment and plan: Chronic Was not on home medication. continue omeprazole Qualifiers: Esophagitis presence: esophagitis presence not specified Qualified Code(s) : K21.9 - Gastro-esophageal reflux disease without esophagitis - Subjective Interval history: Pt reports feeling better today. He denies chest pain. His only complaint is that he still gets a little short of breath on exertion, but overall his breathing is better. Patient went for the second half of his Stress test this morning and is awaiting the results. He reports he is eager to go home if the report is good. - Constitutional Vitals: Temp Pulse Resp BP Pulse Ox 97.5 F L 86 16 120/68 94 07/08/17 10:46 07/08/17 10:46 07/08/17 10:46 07/08/17 10:46 07/08/17 10:46 General appearance: Present: cooperative, A&O X 3, morbidly obese, pleasant, no acute distress, answers questions appropriately - Eye Eye exam: Present: sclera anicteric - ENT ENT exam: Present: mucous membranes moist - Respiratory Respiratory exam: Present: CTAB. Absent: rales, rhonchi, wheezes - Cardiovascular Cardiovascular exam: Present: +S1, +S2. Absent: diastolic murmur, gallop, rubs Additional comments: Occasional PVCs. - GI/Abdominal GI/Abdominal exam: Present: normal bowel sounds, soft. Absent: tenderness - Extremities Exam Extremities exam: Present: warm. Absent: pedal edema, tenderness - Neurological Exam Neurological exam: Present: alert, oriented X3. Absent: speech deficit - Psychiatric Psychiatric exam: Present: normal affect, normal mood - Skin Skin exam: Present: dry, warm Internal Medicine: Result - Labs CBC & Chem 7: 07/07/17 04:49 07/07/17 04:49 - ABG Interpretation ABG results: PT/INR, D-dimer PT 12.9 Seconds (9.4-12.1) H 07/06/17 11:25 D-Dimer 317 ng/mLFEU (0-500) 07/06/17 11:25 - Impressions Impressions Chest X-Ray 07/07/17 08:07 IMPRESSION: No acute cardiopulmonary disease. D/ / Leah Bardales MD / Leah Bardales MD Interpreting Provider: Leah Bardales MD Consult Discharge Plan - Plan Referrals: Getachew Rosales MD [Primary Care Provider] - <ChinaMusaCesarallisonWally jones H - Last Filed: 07/08/17 16:18> Date of Encounter: 07/08/17 - Constitutional Vitals: Temp Pulse Resp BP Pulse Ox 98.1 F 78 16 131/69 90 07/08/17 16:01 07/08/17 16:01 07/08/17 16:01 07/08/17 16:01 07/08/17 16:01 Internal Medicine: Result - Labs CBC & Chem 7: 07/07/17 04:49 07/07/17 04:49 - ABG Interpretation ABG results: PT/INR, D-dimer PT 12.9 Seconds (9.4-12.1) H 07/06/17 11:25 D-Dimer 317 ng/mLFEU (0-500) 07/06/17 11:25 - Attending Attestation Multiple PVCs and bigeminy Paroxysmal A. fib Discontinue diltiazem Start metoprolol per cardiology recommendations, anticoagulation to be discussed I examined this patient and my medical decision-making was reviewed with the Resident Physician. I agree with the documented findings, disposition and treatment plan as described except to the extent set forth below.
--- NOTE | 2017-07-08 11:25 | Nuclear Medicine Stress Report ---
Regadenoson Nuclear 2 day Name: Tony Lay Date of Study: 07/07/2017 Date: 1940 Ht: 66.0 in Medical Record#: [id number] Age: 76 Wt: 250.0 lb Gender: Male Order #: [id number] Location: [facility] Room: 2N7 Supervising Provider: Benitez Gutierrez CNP Reading Physician: Mervin Ness MD, [facility] Ordering Physician: Nicole Bar MD Primary Care Physician: Getachew Rosales MD Stress Technologist: Tr Cha SUPERVISOR FLESHING, CCT Fishing Gear Mechanic: Marva Sullivan Indications: Shortness of breath Impression: Very frequent PVCs noted prior to exam beginning, during stress, and in recovery. Mildly decreased LV systolic function, gated LVEF = 44%. Perfusion imaging was negative for ischemia or infarct. History: Hypercholesteremia Stress Test Summary: Stress Test Type: Pharmacologic Regadenoson 0.4mg/5ml given IV Baseline Information: Initial Heart Rate: 69 Blood Pressure: 134/76 Stress Information: Test Terminated Due to (primary): Completed Protocol Maximum Blood Pressure: 114/70 Maximum Heart Rate: 85 Percent Maximum Heart Rate Achieved: 59 Double Product: 9690 Symptoms: Lightheadness Nuclear Summary: SPECT myocardial perfusion imaging using Tc99m Sestamibi given intravenously was performed at rest and following cardiac stress testing. The resting images were obtained following initial dose of 34.1 mCi. Following stress an additional dose of 35 mCi was given at peak exercise or 30 seconds post regadenoson infusion. Findings: Stress Note * Resting ECG demonstrated sinus rhythm with frequent PVCs. * Very frequent PVCs noted prior to exam beginning, during stress, and in recovery. * Patient had no chest pain during stress. * No significant ECG changes with regadenoson. Hemodynamic responses * Normal hemodynamic responses to pharmacologic stress. Study Quality * Study quality is average. Gated EF % * Mildly decreased LV systolic function, gated LVEF = 44%. Left Ventricle * The left ventricle is not dilated. * Normal Segmental Perfusion in rest. * Normal segmental perfusion in stress. TID * No evidence of transient ischemic dilatation. Updated by Mervin Ness MD, [facility] on 07/08/2017 11:19:48 AM electronically signed on 07/08/2017 11:20:21 AM with status of Final
--- NOTE | 2017-07-08 13:42 | Discharge Summary ---
<Gavin Bradley - Last Filed: 07/09/17 10:31> Date of Encounter: 07/09/17 Time of Encounter: 13:40 - Discharge Diagnosis (1) Bigeminal rhythm Priority: Primary Status: Acute (2) Paroxysmal atrial fibrillation Priority: Secondary Status: Acute (3) Dyspnea Priority: Secondary Status: Acute Qualifiers: Dyspnea type: dyspnea on exertion Qualified Code(s): R06.09 - Other forms of dyspnea (4) Premature ventricular contractions Priority: Primary Status: Acute (5) Chest pressure Priority: Secondary Status: Acute (6) Lightheadedness Priority: Secondary Status: Acute (7) Weakness Priority: Secondary Status: Acute (8) HLD (hyperlipidemia) Priority: Secondary Status: Chronic Qualifiers: Hyperlipidemia type: mixed hyperlipidemia Qualified Code(s): E78.2 - Mixed hyperlipidemia (9) Thyroid disease Priority: Secondary Status: Chronic (10) GERD (gastroesophageal reflux disease) Priority: Secondary Status: Chronic Qualifiers: Esophagitis presence: esophagitis presence not specified Qualified Code(s) : K21.9 - Gastro-esophageal reflux disease without esophagitis - Discharge Medications Prescriptions: Apixaban [Eliquis] 5 mg PO BID #60 tab Atorvastatin [Lipitor] 40 mg PO HS #30 tab Metoprolol XL (24 HR) Succ [Toprol Xl] 12.5 mg PO DAILY #30 tab Home Medications: Escitalopram [Lexapro] 10 mg PO DAILY 07/06/17 [History] Levothyroxine Sodium [Levoxyl] 100 mcg PO DAILY 07/06/17 [History] Apixaban [Eliquis] 5 mg PO BID #60 tab 07/09/17 [Rx] Atorvastatin [Lipitor] 40 mg PO HS #30 tab 07/09/17 [Rx] Metoprolol XL (24 HR) Succ [Toprol Xl] 12.5 mg PO DAILY #30 tab 07/09/17 [Rx] Allergies/Adverse Reactions: 3 Allergy/AdvReac Type Severity Reaction Status Date / Time Sulfa (Sulfonamide AdvReac Rash Verified 07/06/17 11:21 Antibiotics) Procedures/tests Complete & Pending: Procedures Performed prior 72 hours Category Date Time Status NM zachariah perf SPECT multi [NM] Routine Exams 07/06/17 18:18 Taken EV echocardiogram Stat Y 07/06/17 13:17 Completed SP pharm nuclear stress Routine Y 07/07/17 07:45 Completed CXR 1 FINDINGS: Lungs: Clear Mediastinum: Unremarkable Pleura: No pleural effusion or pneumothorax Other: Unremarkable XR/XR chest 1V portable IMPRESSION: No acute process. CXR 2 "FINDINGS: No lines or tubes. Stable cardiomediastinal silhouette. The lungs are clear without focal consolidation or pleural effusion. No suspicious pulmonary nodules. No pulmonary edema. No pneumothorax. No acute osseous abnormality. XR/XR chest 2V IMPRESSION: No acute cardiopulmonary disease." Echo: LVEF 60%, moderate diastolic function, no significant valvular dysfunction, all short with normal motion, no pulmonary HTN. Stress: Perfusion imging negative for ischemia or infarct Date of admission: 07/06/17 12:56 Primary care physician: Getachew Rosales MD Consults: 07/06/17 13:15 Consult to Occupational Therapy [CONS] Routine Comment: Evaluate, develop and implement POC Reason for Consult: Patient is having problems with ADLs due to SOB, weakness , and lightheadedness. Assess for safety measures and strengthening. 07/06/17 13:16 Consult to Physical Therapy [CONS] Routine Comment: Evaluate, develop and implement POC Reason for Consult: Patient is having problems with ADLs due to SOB, weakness , and lightheadedness. Assess for safety measures and strengthening. 07/06/17 15:15 Consult to Supply Chain Engineer [CONS] Routine Reason for SW Consult: POA paperwork Discharging clinician: Gavin Bradley Anticipated date of discharge: 07/08/17 - Patient Status Disposition: Home, Self-Care Condition: Fair Functional capacity at discharge: independent ambulation Overall status at discharge: patient is progressing back to baseline - Discharge Instructions Instructions: Metoprolol (By mouth), Atorvastatin (By mouth), Apixaban (By mouth), Atrial Fibrillation (DC) Follow Up With: Getachew Rosales MD [Primary Care Provider] - 07/30/17 11:00 am ([phone] new practice number ) Forms: ED Satisfaction Letter Additional Instructions: Please follow up with your primary care provider within 1 week of discharge. Please follow up with your Fingerprint Expert as scheduled. Please take all your medications as prescribed including stopping your diltiazem and starting Eliquis, Metoprolol, and taking the higher dose of atorvastatin. Please return to the hospital if you experience any new or worsening symptoms. - Diet and Activity Activity: resume usual activities as tolerated Diet: advance to your usual diet Interval History: Patient reports improvement in sxs that brought him into the hospital. His stress test was negative for ischemia. PVCs reduced in half by metoprolol Hospital course: Mr. Lay is a 76 year old male c PMHx of arrhythmia, thyroid disease and HLD who presented to the hospital for CASAS and chest pressure. Patient has hx of Bigeminy and was started on diltiazem by broom stitcher at [facility]. Patient report this medication actually worsened his symptoms. Patient was worked up for causes of his sxs and his PVCs. K, Mg, and TSH were all normal. CXR was normal. Echo showed mild diastolic dysfunction, and Stress test showed no signs of ischemia or infarct. Cardiology was on board through out. Patient had a run of afib so it was decided to start the patient on anticoagulation and a beta suzette. Patient was observed overnight after starting metoprolol and his PVC rate was cut in half. Patient was discharged on metoprolol and elliquis with follow up with cardiology. - Time Spent with Patient Total time spent providing and/or coordinating discharge services: 40 Minutes - Constitutional Vitals: Temp Pulse Resp BP Pulse Ox 97.5 F L 86 16 121/73 94 07/08/17 10:46 07/08/17 10:46 07/08/17 10:46 07/08/17 12:37 07/08/17 10:46 General appearance: Present: cooperative, A&O X 3, morbidly obese, pleasant, no acute distress, answers questions appropriately - Eye Eye exam: Present: sclera anicteric - ENT ENT exam: Present: mucous membranes dry - Respiratory Respiratory exam: Present: CTAB. Absent: rales, rhonchi, wheezes - Cardiovascular Cardiovascular exam: Present: +S1, +S2. Absent: diastolic murmur, gallop, rubs Additional comments: Frequent PVCs - GI/Abdominal GI/Abdominal exam: Present: normal bowel sounds, soft. Absent: tenderness - Extremities Exam Extremities exam: Absent: pedal edema - Neurological Exam Neurological exam: Present: alert, oriented X3. Absent: speech deficit - Psychiatric Psychiatric exam: Present: normal affect, normal mood - Skin Skin exam: Present: dry, warm <[place],Wally H - Last Filed: 07/09/17 13:30> Date of Encounter: 07/09/17 Procedures/tests Complete & Pending: Procedures Performed prior 72 hours Category Date Time Status NM zachariah perf SPECT multi [NM] Routine Exams 07/06/17 18:18 Taken ECG 12 lead ECG [ECG] Stat Y 07/08/17 15:48 Ordered EV echocardiogram Stat Y 07/06/17 13:17 Completed SP pharm nuclear stress Routine Y 07/07/17 07:45 Completed Date of admission: 07/06/17 12:56 Primary care physician: Getachew Rosales MD Consults: 07/06/17 13:15 Consult to Occupational Therapy [CONS] Routine Comment: Evaluate, develop and implement POC Reason for Consult: Patient is having problems with ADLs due to SOB, weakness , and lightheadedness. Assess for safety measures and strengthening. 07/06/17 13:16 Consult to Physical Therapy [CONS] Routine Comment: Evaluate, develop and implement POC Reason for Consult: Patient is having problems with ADLs due to SOB, weakness , and lightheadedness. Assess for safety measures and strengthening. 07/06/17 15:15 Consult to Supply Chain Engineer [CONS] Routine Reason for SW Consult: POA paperwork Hospital course: Mr. Lay is a 76 year old male - Time Spent with Patient Total time spent providing and/or coordinating discharge services: - Constitutional Vitals: Temp Pulse Resp BP Pulse Ox 97.8 F 65 16 129/78 96 07/09/17 11:20 07/09/17 11:20 07/09/17 11:20 07/09/17 11:20 07/09/17 11:20 - Attending Attestation Discontinue diltiazem, continue metoprolol and Eliquis per cardiology recommendations I examined this patient and my medical decision-making was reviewed with the Resident Physician. I agree with the documented findings, disposition and treatment plan as described except to the extent set forth below.
--- NOTE | 2017-07-08 15:38 | Cardiology Progress Note ---
Date of Encounter: 07/08/17 Time of Encounter: 14:00 Assessment and Plan (1) Premature ventricular contractions Current Visit: Yes Status: Acute Per cardiology: -Frequent PVCs noted per telemetry. -Episodes of bigeminy noted. -ECG with bigeminal PVCs. -Denies chest pain. -Admits to increased shortness of breath and increased weakness. -Echo 07/06/17 with LVEF 60%, moderate diastolic function, no significant valvular dysfunction, all short with normal motion. -K, Mg, and TSH, within normal limits. On synthroid. -Stress negative for ischemia or infarct. -Will start low dose beta suzette. Will continue to monitor. -Of note, pateint complained of left shoulder pain during assessment. WIll order stat ECG to rule out cardiac cause of pain. (2) Paroxysmal atrial fibrillation Current Visit: Yes Status: Acute Per cardiology: -No known history fo atrial fibrillation. -Paroxysmal atrial fibrillation noted per telemetry. Telemetry strips reviewed with who agrees with atrial fibrillation. -[id number] score 2 (age). Recommend buttermaker helper anticoagulation. Discussed at length with patient and family. Patient prefers NOACs to coumadin. Would be agreeable to coumadin if NOAC not affordable. -Average HR 81. -Pateint admits to shortness of breath and palpitations, however has frequent PVCs also. -Started low dose beta suzette. -Will guillermo check NOACs for pateint. WIll determine snf anticoagulation pending guillermo check. (3) HLD (hyperlipidemia) Current Visit: Yes Status: Chronic Per cardiology: -KNown hyperlipidemia. -Triglycerides 167, cholesterol 185. LDL 118, and HDL 34. AST and ALT within normal limits. -Will continue to monitor. Qualifiers: Hyperlipidemia type: mixed hyperlipidemia Qualified Code(s): E78.2 - Mixed hyperlipidemia Discussion w patient/family: The assessment and plan as outlined above was discussed with the patient and/or family members who expressed understanding and agreement. All questions were answered. Thank you for involving us in the care of your patient. Please call with any questions. Discussed and reviewed with . Subjective Principal diagnosis: Frequent PVCs Interval history: Patient states he feels ok this morning. Patient states weakness and shortness of breath are about the same. Patient denies bleeding or blood loss. Objective Vital Signs, Last 4 Hours BP BP BP 07/08/17 12:37 121/73 127/77 143/73 Vital Signs Temp Pulse Resp BP BP BP BP 07/08/17 12:37 121/73 127/77 143/73 07/08/17 10:46 97.5 F L 86 16 120/68 07/08/17 08:04 97.8 F 69 15 125/70 07/08/17 04:00 98.2 F 95 19 109/72 07/08/17 03:07 17 07/07/17 23:19 16 07/07/17 20:00 97.8 F 76 19 133/56 07/07/17 15:56 97.8 F 87 14 154/68 Pulse Ox 07/08/17 12:37 07/08/17 10:46 94 07/08/17 08:04 96 07/08/17 04:00 94 07/08/17 03:07 98 07/07/17 23:19 94 07/07/17 20:00 95 07/07/17 15:56 93 General: Conversant, No Apparent Distress HEENT: Atraumatic, Normocephaly, Mucus Membranes Moist Neck: No JVD, Normal carotid pulses Cardiac: Normal S1 and S2, No Murmur, Other (Irregular) Lungs: Normal Breath Sounds, No Wheeze, Rales, Rhonchi Neuro: Alert and responsive, No focal deficits noted Abdomen: Soft, Non-Tender Skin: No rashes noted on visualized skin Musculoskeletal: No Chest Wall Tenderness Extremities: No Clubbing, No Cyanosis, No Edema, Normal Pulses Results 07/07/17 04:49 07/07/17 04:49 Active Medications Acetaminophen (Tylenol) 650 mg PO Q6HR PRN PRN Reason: Mild Pain (1-3) Stop: 01/05/18 13:14 Hydrocodone Bitart/Acetaminophen ([place] 5-325 Mg) 1 tab PO Q4HR PRN PRN Reason: Moderate Pain (4-6) Stop: 01/05/18 13:14 Albuterol Sulfate (Albuterol Inhaler) 2 puff IH QIDR [facility] Stop: 01/06/18 17:01 Last Admin: 07/08/17 11:34 Dose: 2 puff Atorvastatin Calcium (Lipitor) 40 mg PO [facility] Stop: 01/06/18 21:01 Last Admin: 07/07/17 21:50 Dose: 40 mg Escitalopram Oxalate (Lexapro) 10 mg PO DAILY [facility] Stop: 01/06/18 09:01 Last Admin: 07/08/17 08:34 Dose: 10 mg Heparin Sodium (Porcine) (Heparin) 5,000 unit SQ Q8HCO [facility] Stop: 01/05/18 14:01 Last Admin: 07/08/17 06:03 Dose: 5,000 unit Hydrochlorothiazide (Hydrochlorothiazide) 25 mg PO DAILY [facility] PRN Reason: Protocol Stop: 01/06/18 10:46 Last Admin: 07/08/17 08:34 Dose: 25 mg Levothyroxine Sodium (Synthroid) 100 mcg PO 0630 [facility] Stop: 01/06/18 06:31 Last Admin: 07/08/17 06:03 Dose: 100 mcg Metoprolol Succinate (Toprol Xl) 12.5 mg PO DAILY [facility] Stop: 01/07/18 15:46 Morphine Sulfate (Morphine Sulfate) 2 mg IVP Q4HR PRN PRN Reason: Severe Pain (7-10) Stop: 01/05/18 13:14 Naloxone HCl (Narcan) 0.4 mg IVP Q2MIN PRN PRN Reason: Opioid Reversal Stop: 01/05/18 13:14 Omeprazole (Prilosec) 20 mg PO DAILY@0630 [facility] PRN Reason: Protocol Stop: 01/07/18 06:31 Last Admin: 07/08/17 06:03 Dose: 20 mg Ondansetron HCl (Zofran) 4 mg IVP Q8HR PRN PRN Reason: Nausea And Vomiting Stop: 01/05/18 13:14 Laboratory Tests 07/06/17 07/07/17 07/07/17 11:25 04:49 04:49 Hgb 15.0 Potassium 4.4 Creatinine 1.18 Magnesium 2.3 TSH 4.406 - Imaging and Cardiology Chest Xray: report reviewed Stress Test: report reviewed Echo: report reviewed - EKG Interpretation EKG results cardiology: other (Telemetry reviewed with average HR 81, mostly sinus rhythm. Frequent PVCs noted. Paroxysmal atrial fibrillation noted per telemetry.) Consult Discharge Plan - Plan Referrals: Getachew Rosales MD [Primary Care Provider] -
[2017-07-08] MEDS: Metoprolol XL (24 HR) Succ 25 MG TAB.ER.24H PO SCH (17:32)
[2017-07-08] MEDS: APIXABAN 5 MG TABLET PO SCH (20:38)
[2017-07-09] MEDS: APIXABAN 5 MG TABLET PO SCH (08:34)
[2017-07-09] MEDS: Metoprolol XL (24 HR) Succ 25 MG TAB.ER.24H PO SCH (08:34)
--- NOTE | 2017-07-09 10:20 | Internal Med Progress Note ---
<Gavin Bradley - Last Filed: 07/09/17 10:18> Date of Encounter: 07/09/17 Time of Encounter: 08:45 - Assessment and plan (1) Bigeminal rhythm Current Visit: Yes Status: Acute Assessment and plan: Metoprolol cut PVCs in half. Patient feeling better. Will be d/c on metoprolol. K, Mg, and TSH wnl ECHO showed:LVEF 60%, moderate diastolic function, no significant valvular dysfunction, all short with normal motion. Stress test showed no ischemia or infarct. Will follow up with Cardiology in [place] (2) Paroxysmal atrial fibrillation Current Visit: Yes Status: Acute Assessment and plan: Pt was noted to be in a fib on monitoring overnight between 06/06-06/07. Patient decided to go with [facility] for anticoagulation Prior authorization pending. Will follow up with cardiology in [place]. (3) Dyspnea Current Visit: Yes Status: Acute Assessment and plan: Improved Pt sating well on RA likely 2/2 bigemeny/PVCs continue albuterol treatments QIDR Qualifiers: Dyspnea type: dyspnea on exertion Qualified Code(s): R06.09 - Other forms of dyspnea (4) Premature ventricular contractions Current Visit: Yes Status: Acute Assessment and plan: See bigeminal rythym (5) Chest pressure Current Visit: Yes Status: Acute Assessment and plan: -Resolved. -Cardiac work up underway, but may be 2/2 to his chronic gerd for which he was not taking medication for regularly. -ECHO showed:LVEF 60%, moderate diastolic function, no significant valvular dysfunction, all short with normal motion. -Stress test negative for ischemia or infarct. (6) Lightheadedness Current Visit: Yes Status: Acute Assessment and plan: -Resolved. Orthostatics negative. (7) Weakness Current Visit: Yes Status: Acute Assessment and plan: -resolved. -Likely 2/2 to his bradycardia and bigeminal HR -Evaluated by PT and cleared for D/C home. (8) HLD (hyperlipidemia) Current Visit: Yes Status: Chronic Assessment and plan: -Lipid panel showed Triglycerides 167, cholesterol 185. LDL 118, and HDL 34. -Atorvastatin was increased from 10mg daily to 40mg daily -continue 40mg daily Qualifiers: Hyperlipidemia type: mixed hyperlipidemia Qualified Code(s): E78.2 - Mixed hyperlipidemia (9) Thyroid disease Current Visit: Yes Status: Chronic Assessment and plan: -Stable. -TSH 4.406 -Continue Synthroid (10) GERD (gastroesophageal reflux disease) Current Visit: Yes Status: Chronic Assessment and plan: -Chronic -Was not on home medication. -continue omeprazole Qualifiers: Esophagitis presence: esophagitis presence not specified Qualified Code(s) : K21.9 - Gastro-esophageal reflux disease without esophagitis - Subjective Interval history: Pt reports feeling better today. He denies chest pain. Patient cut his number of PVCs in half on metoprolol over night. Patient has decided on eliquis for anticoagulation for afib and will be discharged home pending prior authorization of eliquis. - Constitutional Vitals: Temp Pulse Resp BP Pulse Ox 98.1 F 71 16 133/79 96 07/09/17 08:04 07/09/17 08:04 07/09/17 08:04 07/09/17 08:04 07/09/17 08:04 General appearance: Present: cooperative, A&O X 3, morbidly obese, pleasant, no acute distress, answers questions appropriately - Eye Eye exam: Present: PERRL - ENT ENT exam: Present: mucous membranes moist - Respiratory Respiratory exam: Present: CTAB. Absent: rales, rhonchi, wheezes - Cardiovascular Cardiovascular exam: Present: +S1, +S2. Absent: diastolic murmur, gallop, rubs Additional comments: occasional PVCs - GI/Abdominal GI/Abdominal exam: Present: normal bowel sounds, soft. Absent: tenderness - Extremities Exam Extremities exam: Absent: pedal edema, tenderness - Neurological Exam Neurological exam: Present: alert, oriented X3. Absent: speech deficit - Psychiatric Psychiatric exam: Present: normal affect, normal mood - Skin Skin exam: Present: dry, warm Internal Medicine: Result - Labs CBC & Chem 7: 07/07/17 04:49 07/07/17 04:49 - ABG Interpretation ABG results: PT/INR, D-dimer PT 12.9 Seconds (9.4-12.1) H 07/06/17 11:25 D-Dimer 317 ng/mLFEU (0-500) 07/06/17 11:25 Consult Discharge Plan - Plan Instructions: Metoprolol (By mouth), Atorvastatin (By mouth), Apixaban (By mouth), Atrial Fibrillation (DC) Additional Instructions: Please follow up with your primary care provider within 1 week of discharge. Please follow up with your Rn Quality as scheduled. Please take all your medications as prescribed including stopping your diltiazem and starting Eliquis, Metoprolol, and taking the higher dose of atorvastatin. Please return to the hospital if you experience any new or worsening symptoms. Referrals: Getachew Rosales MD [Primary Care Provider] - 07/30/17 11:00 am ([phone] new practice number ) Prescriptions: Apixaban [Eliquis] 5 mg PO BID #60 tab Atorvastatin [Lipitor] 40 mg PO HS #30 tab Metoprolol XL (24 HR) Succ [Toprol Xl] 12.5 mg PO DAILY #30 tab <Wally Khan H - Last Filed: 07/09/17 13:31> Date of Encounter: 07/09/17 - Constitutional Vitals: Temp Pulse Resp BP Pulse Ox 97.8 F 65 16 129/78 96 07/09/17 11:20 07/09/17 11:20 07/09/17 11:20 07/09/17 11:20 07/09/17 11:20 Internal Medicine: Result - Labs CBC & Chem 7: 07/07/17 04:49 07/07/17 04:49 - ABG Interpretation ABG results: PT/INR, D-dimer PT 12.9 Seconds (9.4-12.1) H 07/06/17 11:25 D-Dimer 317 ng/mLFEU (0-500) 07/06/17 11:25 - Attending Attestation Discontinue diltiazem, continue metoprolol and Eliquis per cardiology recommendations I examined this patient and my medical decision-making was reviewed with the Resident Physician. I agree with the documented findings, disposition and treatment plan as described except to the extent set forth below.
--- NOTE | 2017-07-09 10:20 | Cardiology Progress Note ---
Date of Encounter: 07/09/17 Time of Encounter: 09:30 Assessment and Plan (1) Premature ventricular contractions Current Visit: Yes Status: Acute Per cardiology: -Frequent PVCs noted per telemetry. -Episodes of bigeminy noted. -ECG with bigeminal PVCs. -Denies chest pain. -Admits to increased shortness of breath and increased weakness. States improved today. -Echo 07/06/17 with LVEF 60%, moderate diastolic function, no significant valvular dysfunction, all short with normal motion. -K, Mg, and TSH, within normal limits. On synthroid. -Stress negative for ischemia or infarct. -Overall PVCs have decreased since addition of beta suzette and patients symptoms have improved. -Recommend continuing beta suzette. -Cardiology will sign off. Patient will follow up with primary refrigeration systems installer in [place]. (2) Paroxysmal atrial fibrillation Current Visit: Yes Status: Acute Per cardiology: -No known history fo atrial fibrillation. -Paroxysmal atrial fibrillation noted per telemetry. Telemetry strips reviewed with who agrees with atrial fibrillation. -[id number] score 2 (age). Recommend watermelon inspector anticoagulation. Discussed at length with patient and family. Patient prefers NOACs to coumadin. Patient's takes eliquis and states it is $200/month for her. Patient and have same insurance. Patient and state addition of eliquis would be affordable for both of them. Eliquis was started last time. NO bleeding or blood loss noted. -Average HR 75. 2 episodes of atrial fibrillation noted last night. Of note, paient reports snoring and has not been tested for sleep apnea. -Pateint admits to shortness of breath and palpitations, however has frequent PVCs also. -Prior authorization sent for eliquis per cardiology office. -Free 30 day card for eliquis given to patient. -Recommend out patient sleep study. -Patient will follow with primary refrigeration systems installer in [place]. (3) HLD (hyperlipidemia) Current Visit: Yes Status: Chronic Per cardiology: -KNown hyperlipidemia. -Triglycerides 167, cholesterol 185. LDL 118, and HDL 34. AST and ALT within normal limits. -Will continue to monitor. Qualifiers: Qualified Code(s): E78.2 - Mixed hyperlipidemia Discussion w patient/family: The assessment and plan as outlined above was discussed with the patient and/or family members who expressed understanding and agreement. All questions were answered. Thank you for involving us in the care of your patient. Please call with any questions. Discussed and reviewed with . Subjective Principal diagnosis: Frequent PVCs Interval history: Patient states he feels better today than he has the whole time he has been admitted. Patient denies bleeding or blood loss. Objective Vital Signs, Last 4 Hours Temp Pulse Resp BP Pulse Ox 07/09/17 08:04 98.1 F 71 16 133/79 96 General: Conversant, No Apparent Distress HEENT: Atraumatic, Normocephaly, Mucus Membranes Moist Neck: No JVD, Normal carotid pulses Cardiac: Normal S1 and S2, No Murmur, Other (Frequent PVCs noted. ) Lungs: Normal Breath Sounds, No Wheeze, Rales, Rhonchi Neuro: Alert and responsive, No focal deficits noted Abdomen: Soft, Non-Tender Skin: No rashes noted on visualized skin Musculoskeletal: No Chest Wall Tenderness Extremities: No Clubbing, No Cyanosis, No Edema, Normal Pulses Results 07/07/17 04:49 07/07/17 04:49 Active Medications Acetaminophen (Tylenol) 650 mg PO Q6HR PRN PRN Reason: Mild Pain (1-3) Stop: 01/05/18 13:14 Hydrocodone Bitart/Acetaminophen (Chadron 5-325 Mg) 1 tab PO Q4HR PRN PRN Reason: Moderate Pain (4-6) Stop: 01/05/18 13:14 Albuterol Sulfate (Albuterol Inhaler) 2 puff IH QIDR [facility] Stop: 01/06/18 17:01 Last Admin: 07/09/17 04:07 Dose: Not Given Apixaban (Eliquis) 5 mg PO BID [facility] Stop: 01/07/18 21:01 Last Admin: 07/09/17 08:34 Dose: 5 mg Atorvastatin Calcium (Lipitor) 40 mg PO HS [facility] Stop: 01/06/18 21:01 Last Admin: 07/08/17 20:38 Dose: 40 mg Escitalopram Oxalate (Lexapro) 10 mg PO DAILY [facility] Stop: 01/06/18 09:01 Last Admin: 07/09/17 08:34 Dose: 10 mg Levothyroxine Sodium (Synthroid) 100 mcg PO 0630 [facility] Stop: 01/06/18 06:31 Last Admin: 07/09/17 05:54 Dose: 100 mcg Metoprolol Succinate (Toprol Xl) 12.5 mg PO DAILY [facility] Stop: 01/07/18 15:46 Last Admin: 07/09/17 08:34 Dose: 12.5 mg Morphine Sulfate (Morphine Sulfate) 2 mg IVP Q4HR PRN PRN Reason: Severe Pain (7-10) Stop: 01/05/18 13:14 Naloxone HCl (Narcan) 0.4 mg IVP Q2MIN PRN PRN Reason: Opioid Reversal Stop: 01/05/18 13:14 Omeprazole (Prilosec) 20 mg PO DAILY@0630 [facility] PRN Reason: Protocol Stop: 01/07/18 06:31 Last Admin: 07/09/17 05:54 Dose: 20 mg Ondansetron HCl (Zofran) 4 mg IVP Q8HR PRN PRN Reason: Nausea And Vomiting Stop: 01/05/18 13:14 Laboratory Tests 07/07/17 07/07/17 04:49 04:49 Hgb 15.0 Creatinine 1.18 - Imaging and Cardiology Chest Xray: report reviewed Stress Test: report reviewed Echo: report reviewed - EKG Interpretation EKG results cardiology: other (Telemetry reviewed with average HR 75, sinus rhythm. Frequent PVCs, couplets, and bigeminy noted. 2 episodes of atrial fibrillation noted.) Consult Discharge Plan - Plan Referrals: Getachew Rosales MD [Primary Care Provider] -
[2017-07-09 11:23] VITALS: BP 129/78
== END 2017-07-09 14:12 | disposition home or self-care (01) ==
LOC: 2NENU 10:52 → EMEROO 10:52 → SUATTDRO 12:56 → 2NENU 13:50
PROVIDERS: ADMIT Internal Medicine; ATTEND Internal Medicine